=== PATIENT | female | born 1980 | race Caucasian/White ===

== ENCOUNTER → 2020-12-03 | Outpatient (CLI) | payer OTHER | LOC: RAD 16:15 | PROVIDERS: ATTEND Nurse Practitioner Family | DX: M54.31 Sciatica, right side (principal) ==

== ENCOUNTER 2022-01-14 18:34 | Emergency (ER) | payer SELFPAY ==
[~2022-01-14] VITALS: Ht 157 cm; Wt 68.0 kg
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
[2022-01-14] MEDS ORDERED: CYCL10TA25 PO (19:56)
[2022-01-14] MEDS ORDERED: ACETAMINOPHEN 500 MG TAB (TYLENOL) PO ONE (20:00)
[2022-01-14] MEDS ORDERED: ORPHENADRINE 60 MG/2 ML (NORFLEX) AMP (ED ONLY) IVP ONE (20:00)
[2022-01-14] MEDS ORDERED: CYCLOBENZAPRINE 10 MG (FLEXERIL) TAB PO ONE (20:00)
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
[2022-01-14 21:24] VITALS: BP 161/108
[2022-01-14] MEDS ORDERED: PRD20T PO (21:25)
== END 2022-01-14 21:31 | disposition home or self-care (01) ==
LOC: EDUNIT# 18:34 → ER 18:35
DX: M62.838 Other muscle spasm (principal); Z91.040 Latex allergy status; V49.40XA Driver injured in collision with unspecified motor vehicles in traffic accident, initial encounter; Y92.410 Unspecified street and highway as the place of occurrence of the external cause
CPT/HCPCS: 70450; 72125; 72131